=== PATIENT | female | born 1935 | race Caucasian/White ===

== ENCOUNTER → 2016-03-02 | Outpatient (CLI) | payer MEDICARE ==
[~2016-03-02] MED LIST: CHLO4TAB PO; DPH25C PO; HYDR-3702 PO; IBUPROFEN PO; ORPH100T3 PO; SENN-115 PO; TRM50T PO
[2016-03-02 11:55] LABS: MEAN CORPUSCULAR HGB CONC 33.2 g/dL (31.0-37.0); MEAN PLATELET VOLUME 10.2 FL (6.0-9.5); PLATELET COUNT 251 10^3uL (150-450); WHITE BLOOD COUNT 19.98 10^3uL (4.0-11.0)
[2016-03-02 11:56] LABS: MEAN CORPUSCULAR HEMOGLOBIN 32.8 PG (26.0-34.0); MEAN CORPUSCULAR VOLUME 99 FL (80-100)
[2016-03-02 12:00] LABS: BAND NEUTROPHILS % 0 % (0-6); EOSINOPHILS % 0 % (0-4); LYMPHOCYTES # 11.9 #; MONOCYTES # 0.4 #; MONOCYTES % 2 % (3-11); RBC MORPH NORMAL (NORMAL); SEGMENTED NEUTROPHILS % 37 % (51-67); TOTAL CELLS COUNTED 100
[2016-03-02 12:22] LABS: ALBUMIN 4.5 g/dL (3.4-5.0); ANION GAP 16.4 MEQ/L (3-15); CALCULATED IONIZED CALCIUM 4.4 mg/dL (3.8-4.6); TOTAL PROTEIN 7.4 g/dL (6.4-8.5)
--- NOTE | 2016-03-02 16:22 | Diagnostic Imaging Report ---
INDICATION: Yearly physical. History of bronchitis. EXAMINATION: Two-view chest 03/02/2016. Comparison made to 06/04/2009. FINDINGS: Heart is slightly prominent. The pulmonary vasculature is unremarkable. Chronic changes seen throughout both lungs but no focal infiltrates or effusions are appreciated and there is no pneumothorax. IMPRESSION: 1. Cardiomegaly with other chronic changes as described. No acute process. Dictated by: Dictated on workstation # [id number]
== END ==
LOC: LAB 11:41
PROVIDERS: ATTEND Family Medicine
DX: I48.1 Persistent atrial fibrillation (principal); J20.2 Acute bronchitis due to streptococcus; M16.12 Unilateral primary osteoarthritis, left hip; M16.11 Unilateral primary osteoarthritis, right hip; M48.06 Spinal stenosis, lumbar region; R79.89 Other specified abnormal findings of blood chemistry; D50.8 Other iron deficiency anemias; E13.65 Other specified diabetes mellitus with hyperglycemia; E03.4 Atrophy of thyroid (acquired); I51.7 Cardiomegaly
CPT/HCPCS: 36415; 71020; 80053; 83036; 84436; 84443; 85025; 93005

== ENCOUNTER → 2016-03-06 | Outpatient (CLI) | payer MEDICARE ==
--- NOTE | 2016-03-06 13:26 | Diagnostic Imaging Report ---
PROCEDURE: MRI pelvis without contrast. TECHNIQUE: Multiplanar, multisequence MRI of the pelvis was performed without contrast. INDICATION: Bilateral hip pain, spinal stenosis. COMPARISON: September 10, 2015 and June 01, 2014. FINDINGS: [place] right curvature of the visualized lower lumbar spine with associated degenerative changes is noted. See separately dictated MRI of the lumbar spine for findings within the lumbar spine itself. The bilateral sacroiliac joints are unremarkable. Joint space narrowing of the right hip is identified. Mild osteophyte formation is also noted about the right hip. No evidence of avascular necrosis associated with right femoral head. No right hip joint effusion. Mild left hip joint space narrowing. Mild osteophyte formation. Mild subchondral cyst formation. No evidence of avascular necrosis associated with the left femoral head. No left hip joint effusion. No abnormal bursal fluid collection. Insertion site of the hamstrings is unremarkable. Symmetric heterogeneous marrow signal is identified within the bilateral femoral shafts. Mild endplate degenerative marrow edema within L5. Otherwise, bone marrow signal intensity is unremarkable. No significant muscular edema or atrophy. No free fluid within the pelvis. The uterus is not visualized, likely surgically absent. The bilateral acetabular labrum is not optimally evaluated without the use of intra-articular contrast. IMPRESSION: 1. No acute osseous abnormality. 2. Mild degenerative changes identified within the bilateral hips and visualized lower lumbar spine. No evidence of avascular necrosis. 3. Additional findings as above. Dictated by: Dictated on workstation # [id number]
--- NOTE | 2016-03-06 14:34 | Diagnostic Imaging Report ---
PROCEDURE: MRI lumbar spine. TECHNIQUE: Multiplanar, multisequence MRI of the lumbar spine was performed without contrast. INDICATION: Bilateral hip pain, spinal stenosis. COMPARISON: Radiographs dated 09/10/2015. FINDINGS: [place] right curvature of the visualized thoracolumbar spine. No significant anterolisthesis or retrolisthesis. Five lumbar type vertebral bodies are noted. Moderate compression deformity of L1 is identified with approximately 50% loss of vertebral body height. No associated marrow edema. This appears stable from prior radiographs from August 2015. There is very minimal retropulsion of the posterior and superior aspect of the L1 vertebral body into the central canal. Additional scattered endplate degenerative changes are present. Otherwise, vertebral body heights are well-maintained. Degenerative marrow edema is noted on the right at L5/S1. Mild degenerative endplate marrow edema is seen within the superior endplate of L2, particularly on the left. Heterogeneous increased T1 and T2 lesion within the L2 vertebral body is present, consistent with benign hemangioma. Otherwise, bone marrow signal intensity is unremarkable. The conus medullaris is unremarkable and terminates at the appropriate location. Small left renal cyst. Otherwise, the paraspinal soft tissues are unremarkable. T12/L1: Moderate bilateral facet joint degenerative changes. Mild retropulsion of the chronically compressed L1 vertebral body. There is resulting moderate central canal stenosis. Mild to moderate left and mild right neural foraminal stenosis. L1/L2: Moderate bilateral facet joint degenerative changes. Small disc osteophyte complex. There is resulting moderate central canal stenosis. No significant neural foraminal stenosis. L2/L3: Moderate bilateral facet joint degenerative changes. Small diffuse disc bulge. There is resulting mild central canal stenosis. Minimal right neural foraminal stenosis. No significant left neural foraminal stenosis. L3/L4: Moderate bilateral facet joint degenerative changes. Ligamentum flavum hypertrophy. Small diffuse disc bulge. There is resulting moderate central canal stenosis. No significant neural foraminal stenosis. L4/L5: Mild disc space height loss. Mild bilateral facet joint degenerative changes. Small diffuse disc bulge. There is resulting mild to moderate central canal stenosis with slight effacement of bilateral lateral recesses. [id number] right neural foraminal stenosis. Minimal left neural foraminal stenosis. L5/S1: Moderate disc space height loss. Mild bilateral facet joint degenerative changes. Diffuse disc bulge, eccentric to the right. There is resulting effacement of the right lateral recess. Mild right neural foraminal stenosis. No significant left neural foraminal stenosis. IMPRESSION: 1. No acute osseous abnormality with a chronically compressed L1 vertebral body. 2. Scattered degenerative changes with resulting multilevel central canal and neural foraminal stenosis as described above. Central canal stenosis is greatest at T12/L1, L1/L2, and L3/L4. Dictated by: Dictated on workstation # [id number]
== END ==
LOC: RAD 07:33
PROVIDERS: ATTEND Family Medicine
DX: M16.11 Unilateral primary osteoarthritis, right hip (principal); M16.12 Unilateral primary osteoarthritis, left hip; M48.06 Spinal stenosis, lumbar region; M48.05 Spinal stenosis, thoracolumbar region
CPT/HCPCS: 72148; 72195

== ENCOUNTER → 2016-03-18 | Outpatient (CLI) | payer MEDICARE | LOC: RAD 13:23 | PROVIDERS: ATTEND Family Medicine | DX: I73.9 Peripheral vascular disease, unspecified (principal); I48.1 Persistent atrial fibrillation | CPT/HCPCS: 93306; 93925 ==

== ENCOUNTER → 2016-04-13 | Outpatient (CLI) | payer MEDICARE ==
[2016-04-13 12:41] LABS: MEAN CORPUSCULAR HGB CONC 33.2 g/dL (31.0-37.0); MEAN PLATELET VOLUME 10.3 FL (6.0-9.5); PLATELET COUNT 270 10^3uL (150-450); WHITE BLOOD COUNT 14.05 10^3uL (4.0-11.0)
[2016-04-13 12:55] LABS: ALBUMIN 4.1 g/dL (3.4-5.0); ANION GAP 12.2 MEQ/L (3-15); CALCULATED IONIZED CALCIUM 3.9 mg/dL (3.8-4.6); TOTAL PROTEIN 7.3 g/dL (6.4-8.5)
[2016-04-13 13:13] LABS: MEAN CORPUSCULAR HEMOGLOBIN 33.2 PG (26.0-34.0); MEAN CORPUSCULAR VOLUME 100 FL (80-100)
[2016-04-13 13:14] LABS: BAND NEUTROPHILS % 1 % (0-6); EOSINOPHILS % 4 % (0-4); LYMPHOCYTES # 10.4 #; MONOCYTES # 0.3 #; MONOCYTES % 2 % (3-11); RBC MORPH NORMAL (NORMAL); SEGMENTED NEUTROPHILS % 18 % (51-67); TOTAL CELLS COUNTED 100
== END ==
LOC: LAB 12:29
PROVIDERS: ATTEND Family Medicine
DX: D50.8 Other iron deficiency anemias (principal); R79.89 Other specified abnormal findings of blood chemistry
CPT/HCPCS: 36415; 80053; 85025